=== PATIENT | male | born 1960 | race Caucasian/White ===

== ENCOUNTER → 2021-11-04 13:45 | Outpatient (CLI) | payer BC, SELFPAY ==
--- NOTE | ~2021-11-04 | XR_ITS ---
EXAMINATION: XR chest 2V EXAM DATE: 11/04/2021 14:18 INDICATION: Cough, congestion and fever. TECHNIQUE: Frontal and lateral projections of the chest obtained and reviewed. Comparison is made to prior examination from 05/29/2017. FINDINGS: The lungs are clear. There are no pleural effusions. The cardiomediastinal silhouette is within normal limits. There is no pneumothorax suspected. The bones and soft tissues are unremarkab le. IMPRESSION: No acute cardiopulmonary findings. Reviewed, dictated and finalized at location B. PER MACHINE
== END ==
PROVIDERS: Visit Provider Nurse Practitioner Family
DX: R05.9 Cough, unspecified (principal); R50.9 Fever, unspecified; R09.89 Other specified symptoms and signs involving the circulatory and respiratory systems
CPT/HCPCS: 71046

== ENCOUNTER 2022-08-17 12:23 | Outpatient (CLI) | payer BC, SELFPAY ==
--- NOTE | 2022-08-17 12:44 | ECG_ITS ---
Measurements Intervals [place] Rate: 59 P: 60 MT: 168 QRS: -41 QRSD: 114 T: 62 QT: 409 QTc: 407 Interpretive Statements SINUS BRADYCARDIA LEFT AXIS DEVIATION INCOMPLETE RIGHT BUNDLE BRANCH BLOCK CANNOT RULE OUT SEPTAL INFARCT, AGE INDETERMINATE ABNORMAL ECG NO PREVIOUS ECG AVAILABLE FOR COMPARISON Electronically Signed On 08-17-2022 14:10:26 EARTH SCIENCE TECHNICAL OFFICER by Matthias Patterson D.O.
[2022-08-17 12:45] LABS: Hematocrit 43.9 % (42.0-52.0); Hemoglobin 14.6 g/dL (14.0-18.0)
[2022-08-17 12:57] LABS: Hemoglobin A1C 5.4 % (<5.7)
[2022-08-17 13:01] LABS: Albumin Level 4.5 g/dL (3.5-5.1); Estimated Glomerular Filt Rate > 60; Glucose 90 mg/dL (65-110)
[2022-08-17 13:18] LABS: Urine Cotinine NEGATIVE
== END 2022-08-17 12:24 | disposition home or self-care (01) ==
LOC: ANHCARD 12:28
PROVIDERS: PCP Student in an Organized Health Care Education/Training Program; Visit Provider Orthopaedic Surgery
DX: M16.11 Unilateral primary osteoarthritis, right hip (principal); E78.5 Hyperlipidemia, unspecified; Z92.89 Personal history of other medical treatment; I45.10 Unspecified right bundle-branch block
CPT/HCPCS: 80307; 82040; 82565; 82947; 83036; 85014; 85018; 93005

== ENCOUNTER 2022-09-15 07:48 | Outpatient (CLI) | payer BC, SELFPAY ==
[2022-09-15 09:07] LABS: Basophils Absolute Auto 0.1 K/mm3 (0.0-0.1); Basophils Percent Auto 0.8 % (0.2-1.2); Eosinophils Absolute Auto 0.5 K/mm3 (0-0.3); Eosinophils Percent Auto 5.7 % (0-4.4); Hematocrit 44.6 % (42.0-52.0); Hemoglobin 14.5 g/dL (14.0-18.0); Immature Granulocyte Absolute 0.02 K/mm3 (0.00-0.031); Immature Granulocyte Percent A 0.2 % (0-0.5); Immature Platelet Fraction Pct 5.8 % (0.9-11.2); Lymphocytes Absolute Auto 1.55 K/mm3 (0.9-3.2); Lymphocytes Percent Auto 17.1 % (18.3-44.2); Mean Corpuscular HGB Conc 32.5 g/dl (32-36); Mean Corpuscular Hemoglobin 30.3 pg (26-34); Mean Corpuscular Volume 93.1 fl (80-100); Mean Platelet Volume 10.2 fl (7.4-10.4); Monocytes Percent Auto 10.8 % (2.6-8.5); Neutrophils Absolute Auto 5.9 K/mm3 (1.3-6.7); Neutrophils Percent Auto 65.4 % (45.5-73.1); Platelet Count Result 137 k/mm3 (150-375); Red Blood Count 4.79 M/mm3 (4.6-6.20); Red Cell Distribution Width 12.5 % (11.5-14.5); White Blood Count 9.1 K/mm3 (4.5-10.0)
== END 2022-09-15 07:49 | disposition home or self-care (01) ==
PROVIDERS: PCP Student in an Organized Health Care Education/Training Program; Visit Provider Orthopaedic Surgery
DX: M16.11 Unilateral primary osteoarthritis, right hip (principal); Z01.818 Encounter for other preprocedural examination
CPT/HCPCS: 36415; 85025; 85055; 87081

== ENCOUNTER 2022-10-11 01:32 | Day surgery (SDC) | payer BC, SELFPAY ==
--- NOTE | 2022-09-15 07:52 | PC.NURSE ---
PRE-OP INSTRUCTIONS, PLEASE READ CAREFULLY Report to the Outpatient Waiting Room, entrance under the green pavilion located off [facility], at time _1000_ on date _10/11/22_. Planned Procedure Time: _1200_. PACK A SMALL OVERNIGHT BAG AND LEAVE IN THE CAR Time changes happen often and if your time is changed the preop area will call you the afternoon before. - You and your visitor will be asked to self-screen and do not enter if you have any COVID symptoms. - Only one visitor is requested with a max of two and NO children visitors are allowed at this time. - The patient visitor may be requested to leave or wait in car when not with patient due to distancing restrictions. - A mask is required within the hospital. -VISITING HOURS 8AM-8PM Patients may have clear liquids (water, carbonated beverages, clear teas, apple juice) until 3 hours prior to surgery (0900 AM) with a maximum of 20 ounces. - No food from midnight until time of surgery Take the following medications with a SIP of water the morning of surgery: _LEVOTHYROXINE_ Medications to discontinue per DR. QUINTERO - _ALEVE 7 DAYS PRIOR TO SURGERY, Date to take last dose 10/03/22_ Medications to discontinue per ANESTHESIA - _ALL VITAMINS/SUPPLEMENTS DAYS PRIOR TO SURGERY, Date to take last dose 10/07/22_ Please no deodorant, or body powder the day of surgery. No jewelry (including any body piercings) or valuables the day of surgery, leave them at home. Please take a shower or bath the night before, or the morning of, surgery with an antibacterial soap. Wear comfortable, loose fitting clothing. - Jewelry must be removed prior to entering the operating room. Rings and piercings that are not removed may be cut off. - The hospital will not accept responsibility for valuables. - Please leave all valuables, including medications, at home the day of surgery. If you are going home after surgery, a licensed trackless trolley driver must drive you home. - NO public transportation without another adult if you receive anesthesia. - We recommend that an adult stay with you for 24 hours following discharge. - We also recommend that you do not drive, make important decision, drink alcoholic beverages, or take any drugs that were not prescribed by your health care provider for at least 24 hours after your discharge time. Follow any additional instructions given to you from your surgeon. If you or anyone in your household have experienced Covid symptoms in the past week, please notify your surgeon or the nurse liaison at the phone number below for possible testing. Instructions given to _PATIENT_and asked if any additional questions and then verbalized understanding. Patient advised to call surgeon office or pre surgery nurse liaison [phone] if any additional questions.
[2022-09-15 08:55] VITALS: BP 134/80; PULSE 62; RESP 20; TEMP 36.7; O2SAT 100; BMI 20.7
[2022-10-11] VITALS (12 sets, daily range): BP systolic 106–152; BP diastolic 57–83; PULSE 53–67; RESP 12–16; TEMP 36.6–36.9; O2SAT 99–100
--- NOTE | ~2022-10-11 | XR_ITS ---
EXAM: XR hip RT min 2V DATE: 10/11/2022 14:07 HISTORY: RT TOTAL HIP . COMPARISON: 08/11/2022. FINDINGS: Interval right hip total arthroplasty, hardware in good position. No unexpected radiopaque foreign body. Subcutaneous and capsular fluid and emphysema. Degenerative change in the lower lumbar spine, otherwise the regional bones are within normal limits for age. IMPRESSION: Expected postsurgical changes, with no radiographic evidence of procedure or hardware rel ated complication. Reviewed, dictated and finalized at location K. SAFETY MANAGER IMPRESSION: Expected postsurgical changes, with no radiographic evidence of pro cedure or hardware related complication.
--- NOTE | 2022-10-11 07:15 | WPDHPUPDATE1 ---
History and Physical Update Update Date/Time: 10/11/22 07:15 History and Physical has been reviewed, including an updated exam of the patient. There are NO changes in the patient's condition. Risks, benefits, and alternatives have been discussed and questions answered. Patient agrees to proceed with procedure.
--- NOTE | 2022-10-11 08:38 | WPDANESEPPF ---
Anes - Initial Pre Proc Eval Procedure: Operation Date: 10/11/22 11:00 Proposed Procedures p Right Total Hip Arthroplasty - Mitchel Krause MD Date/Time: 10/11/22 08:38 Surgeon: Mitchel Krause MD Pre Op Diagnosis: Prim O A Rt Hip Patient Data Age: 61 Gender: M Height: 1.93 m Weight: 77.3 kg Last Vital Signs Temp 36.7 C 09/15/22 08:55 Pulse 62 09/15/22 08:55 Resp 20 09/15/22 08:55 BP 134/80 09/15/22 08:55 Pulse Ox 100 09/15/22 08:55 O2 Del Method Room Air 09/15/22 08:55 Allergies Allergy/AdvReac Type Severity Reaction Status Date / Time No Known Allergies Allergy Unverified 09/30/22 13:02 Home Medications Medication Instructions Recorded Confirmed Type atorvastatin 10 mg tablet 10 mg PO DAILY 07/26/22 09/30/22 History levothyroxine 88 mcg capsule 88 mcg PO DAILY 07/26/22 09/30/22 History ascorbic acid (vitamin C) 1,000 mg 1 g PO DAILY 09/15/22 09/30/22 History tablet (Vitamin C) calcium carbonate 600 mg-vitamin 1 tablet PO DAILY 09/15/22 09/30/22 History D3 5 mcg (200 unit) tablet cholecalciferol (vitamin D3) 10 10 mcg PO DAILY 09/15/22 09/30/22 History mcg (400 unit) tablet magnesium 100 mg tablet 100 mg PO QAM 09/15/22 09/30/22 History naproxen sodium 220 mg tablet 220 mg PO DAILY PRN Pain 09/15/22 09/30/22 History (Aleve) vitamin E 400 unit tablet 400 unit PO DAILY 09/15/22 09/30/22 History Patient hx anesthesia problems: none Family hx anesthesia problems: none Results Review: All pre-operative results and documents have been reviewed as part of the pre-operative evaluation. [facility] Past Medical History Medical History Chronic low back pain History of stress test Hyperlipemia Hypothyroid Surgical History Surgical History History of laminectomy (~2006) PARTIAL L5-S1 Family History Family History Grandparent Heart attack Social History Social History Smoking status: Never smoker Second hand tobacco smoke exposure: No Additional smoking assessment comments: PT DENIES ALL FORMS OF TOBACCO USE Alcohol intake: current Drinks per week: 4 Substance use: never Substance use type: does not use Lack of Transportation: No Lack of Food: Never True Current Housing: I Have Housing Concerned About Future Housing: No Difficulty Paying Gas/Electric Bills: No Difficulty Paying for Meds: No Currently Unemployed: No Education: Master's Degree or Higher Difficulty w/ Childcare or Family Care: No Living arrangements: with family Spiritual care concerns: No Anes - Eval Final PreProcedure Day of Procedure 10/11/22 08:38 Patient weight: normal Heart: regular rate and rhythm Lungs: clear to auscultation Airway: Mallampati scale class II Neurological: alert and oriented Last oral intake: >/= 8 hours ASA classification: II Emergent: no Anesthetic plan: proceed Anesthesia type and monitoring: general ETT and standard monitoring Results Review: All pre-operative results and documents have been reviewed as part of the pre-operative evaluation. Informed Consent: The patient's anesthetic plan and its attendant risks and benefits were discussed with the patient/family/POA. Questions were solicited and answers provided to the satisfaction of the patient/family/POA.
[2022-10-11] MEDS: ACETAMINOPHEN 500 MG TABLET 1000 MG PO (09:55)
[2022-10-11] MEDS: LACTATED RINGERS 1,000 ML 30 ML IV CONT ×2 (10:01→13:10)
[2022-10-11] MEDS: TRANEXAMIC ACID 1,000MG/ISO100 1,000 MG/100 ML BAG 200 MG IVPB (10:02)
[2022-10-11] MEDS: ceFAZolin 2 GM/D5W 50 ML 2 GM/50 ML BAG IVPB (10:55)
[2022-10-11] MEDS: fentaNYL CITRATE INJ (*CRX) 100 MCG/2 ML VIAL 25 MCG IV PUSH ×8 (13:29→14:30)
--- NOTE | 2022-10-11 13:49 | W.PM.PROC2 ---
Procedure Note - Detailed Date of Procedure 10/11/22 Pre-op Diagnosis Prim O A Rt Hip Post-op Diagnosis Same Procedure Performed Right Total Hip Arthroplasty Surgeon Mitchel Krause MD Pullman Car Repairer Kristine Chauhan PA-C Anesthesia General Findings Severe disease with significant synovitis. Very shallow acetabulum with hypertrophic labrum. Excellent bone quality. Tall and very lean. Habematolel femoral version approximately 0-5 degrees. Femoral stem placed at 5?. Acetabulum component placed at 20? with 10 degree elevated liner utilized just below the equator. Good bony fit and hemispheric acetabular socket created at the 52 mm size. Description of Procedure The patient was given preoperative antibiotics. A general anesthetic was administered. The patient was carefully placed in the lateral decubitus position on the PEG board. The shoulders and hips were carefully positioned for component and leg length positioning reference. The hip was prepped and draped in the usual sterile fashion. A longitudinal incision was created over the posterior aspect of the greater trochanter. Careful dissection was brought down through the deep fascia with electrocautery. A minimally invasive optimized posterior approach to the hip was performed. The short external rotators and capsule were taken down in an L-shaped capsulotomy. The tissue was tagged for later repair using number 2 high strength suture. The femoral neck was measured and taken in situ. The femoral head was removed. The acetabulum was carefully exposed. The inferior capsule was released. The labrum was resected. The acetabulum was sequentially reamed to the intended cup size. The cup was impacted into position with excellent press-fit. Typical anatomic landmarks, including the bony contact points as well as the inferior transverse acetabular ligament were used to confirm cup positioning with preoperative templating. Attention was turned to the femur, which was carefully exposed. The hip was reamed and then broached sequentially. Excellent press-fit was obtained with the broach. The hip was trialed. Measurements were utilized, including the lesser trochanter as well as the center of the femoral head and the tip of the trochanter, and excellent assessment of the offset and leg lengths were confirmed. The real component was impacted into position. Trialing confirmed appropriate leg length and offset with soft tissue balancing as well apparent feel of the leg, both at the knee and the heel. Soft tissues were assessed using the the iliotibial band. Reduction of the posterior capsule and external rotators were also used as a secondary assessment. The hip was copiously irrigated with pulsatile lavage antibiotic solution periodically throughout the procedure. The real components were then assembled and reduced. The hip was stable throughout typical maneuvers, including extension, external rotation to 70 degrees, the position of sleep as well as flexion to 90 degrees with internal rotation past 45 degrees. The shake test confirmed stability without impingement. Osteophytes were removed as necessary. The short external rotators and capsule were repaired back to the posterior trochanter through drill holes. The deep fascia was repaired with running number 2 Quill suture, followed by 0 Stratafix suture and 2-0 Stratafix suture in the dermis. Steri-Strips were placed on the skin, followed by a sterile silver occlusive dressing. There were no complications. Meticulous hemostasis was maintained with the AquaMantys device. The patient was brought to the recovery room in stable condition. There were no complications. Physician cancer genetics assistant, Kristine Chauhan PA-C, required for surgery; including patient positioning, draping, tissue retraction, maintaining instrument position, hip dislocation/ relocation, wound closure, and dressing placement. Implants The Accolade II hip stem, 127 degree size 5 , was utili
[2022-10-11] MEDS: ONDANSETRON INJ 4 MG/2 ML VIAL IV PUSH (15:45)
--- NOTE | 2022-10-11 17:26 | SUR.PHASEII ---
1710 pt seen by pt/ot and is ok for discharge. pt meets anesthesia discharge protocol
== END 2022-10-11 17:20 | disposition home or self-care (01) ==
PROVIDERS: PCP Student in an Organized Health Care Education/Training Program; Visit Provider Orthopaedic Surgery
PROC: (CPT 27130; principal; 2022-10-11 11:00)
DX: M16.11 Unilateral primary osteoarthritis, right hip (principal); E78.5 Hyperlipidemia, unspecified; E03.9 Hypothyroidism, unspecified
CPT/HCPCS: 27130; 73502; 97110; 97116; 97161; 97165; 97530; 97535; A9270; C1776; J0171; J0690; J1100; J1170; J1885; J2250; J2270; J2405; J2704; J2710; J2795; J3010; J7120

== ENCOUNTER 2022-10-11 20:36 | Emergency (ER) | payer BC, SELFPAY ==
[2022-10-11 20:46] VITALS: BP 118/63; PULSE 74; RESP 16; TEMP 36.5; O2SAT 100
--- NOTE | 2022-10-11 21:15 | ED.GENADULT ---
HPI - General Adult General Chief complaint: Unspecified Stated complaint: hip replacement today, blood soaked bandage. Time Seen by Provider: 10/11/22 21:07 History of Present Illness HPI narrative: Patient is a 61-year-old male who presents the ER with postoperative complication. He underwent right total hip replacement today. It was an elective procedure with Dr. Krause. He began bleeding through his bandage and was told to come here to have it changed. He has no new fevers or chills or sweats. No new pain other than what he expects to have after surgery. He has been able to ambulate with his walker. Related Data Home Medications Medication Instructions Recorded Confirmed atorvastatin 10 mg tablet 10 mg PO DAILY 07/26/22 10/11/22 levothyroxine 88 mcg capsule 88 mcg PO DAILY 07/26/22 10/11/22 ascorbic acid (vitamin C) 1,000 mg 1 g PO DAILY 09/15/22 10/11/22 tablet (Vitamin C) calcium carbonate 600 mg-vitamin 1 tablet PO DAILY 09/15/22 10/11/22 D3 5 mcg (200 unit) tablet cholecalciferol (vitamin D3) 10 10 mcg PO DAILY 09/15/22 10/11/22 mcg (400 unit) tablet magnesium 100 mg tablet 100 mg PO QAM 09/15/22 10/11/22 naproxen sodium 220 mg tablet 220 mg PO DAILY PRN Pain 09/15/22 10/11/22 (Aleve) vitamin E 400 unit tablet 400 unit PO DAILY 09/15/22 10/11/22 Allergies Allergy/AdvReac Type Severity Reaction Status Date / Time No Known Allergies Allergy Verified 10/11/22 20:36 Review of Systems Constitutional: Constitutional: Denies chills, Denies fatigue and Denies fever(s) Musculoskeletal: Musculoskeletal: Denies muscle cramps Comments: Postsurgical pain right hip Integumentary/Breasts: Skin/Breast: Denies erythema and Denies rash Comments: Bleeding from postop site right hip. Neurologic: Denies focal weakness and Denies numbness PMFSH Past Medical History Medical History (Updated 10/11/22 @ 21:45 by Jacob Fontaine MD) Chronic low back pain History of stress test Hyperlipemia Hypothyroid Surgical History Surgical History (Updated 10/11/22 @ 21:45 by Jacob Fontaine MD) History of laminectomy (~2006) PARTIAL L5-S1 History of total hip arthroplasty Family History Family History Grandparent Heart attack Social History Social History Smoking status: Never smoker Second hand tobacco smoke exposure: No Additional smoking assessment comments: PT DENIES ALL FORMS OF TOBACCO USE Alcohol intake: current Drinks per week: 4 Substance use: never Substance use type: does not use Lack of Transportation: No Lack of Food: Never True Current Housing: I Have Housing Concerned About Future Housing: No Difficulty Paying Gas/Electric Bills: No Difficulty Paying for Meds: No Currently Unemployed: No Education: Master's Degree or Higher Difficulty w/ Childcare or Family Care: No Spiritual care concerns: No Exam Narrative: GENERAL: Well-appearing, well-nourished, and in no acute distress. HEAD: Normocephalic, atraumatic. HEART: Regular rate and rhythm. Normal peripheral pulses. EXTREMITIES: Right hip with saturated inferior half of the postoperative bandage. Bandage removed and Steri-Strips still intact over the surgical wound without wound dehiscence. No surrounding cellulitis. No drainage of blood/serous fluid/purulent material. Limited range of motion due to recent operation. Bilateral lower extremities with compressive socks below the knee. SKIN: Warm, dry, no rash. Wound as described above. NEURO: Alert and oriented x3. PSYCH: Normal mood and affect. Course Course Emergency Course: We have obtained a Mepilex 4 inch x 10 inch dressing that is the same as what he been placed in the OR. The old saturated bandage has been removed and a new wood has been placed. No active bleeding or evidence of dehiscence of the surgical site.
--- NOTE | 2022-10-11 22:58 | PC.NURSE ---
Mepilex border Post-OP AG 4x10in applied at this time, Dr. Zhen hicks and yovani to continue with d/c.
== END 2022-10-11 23:07 | disposition home or self-care (01) ==
LOC: ANHED 21:48
PROVIDERS: Emergency Provider Emergency Medicine; PCP Student in an Organized Health Care Education/Training Program
DX: L76.22 Postprocedural hemorrhage of skin and subcutaneous tissue following other procedure (principal); Z96.641 Presence of right artificial hip joint; E78.5 Hyperlipidemia, unspecified; E03.9 Hypothyroidism, unspecified; G89.29 Other chronic pain; M54.50 Low back pain, unspecified
CPT/HCPCS: 99282

== ENCOUNTER 2022-10-18 12:53 | Outpatient (CLI) | payer BC, SELFPAY ==
--- NOTE | ~2022-10-18 | US_ITS ---
EXAMINATION: US venous doppler LE DATE: 10/18/2022 13:56 INDICATION: Lower limb pain and swelling TECHNIQUE: Grayscale ultrasound images without and with compression and Doppler ultrasound images of the right lower extremity veins were obtained. COMPARISON: None. FINDINGS: The visualized portions of right common femoral vein, profunda (deep) femoral vein, femoral vein, pop liteal vein, peroneal trunk, posterior tibial veins, peroneal veins, gastrocnemius vein and greater s aphenous vein outflow are patent. IMPRESSION: 1. No deep venous thrombosis in the right lower limb. Reviewed, dictated and finalized at location B. THYLANILINE SULFATOR OPERATOR
== END 2022-10-18 12:54 | disposition home or self-care (01) ==
PROVIDERS: PCP Student in an Organized Health Care Education/Training Program; Visit Provider Orthopaedic Surgery
DX: M79.89 Other specified soft tissue disorders (principal)
CPT/HCPCS: 93971

== ENCOUNTER 2022-12-07 01:31 | Day surgery (SDC) | payer BC, SELFPAY ==
[2022-11-30 12:08] VITALS: BMI 20.9
[2022-12-07 08:23] VITALS: BP 126/70; PULSE 73; RESP 16; TEMP 36.4; O2SAT 99
[2022-12-07] MEDS: AMPICILLIN 2 GM/NS 100 ML 2 GM/100 ML BAG IVPB (08:27)
[2022-12-07] MEDS: LACTATED RINGERS 1,000 ML 150 ML IV CONT (08:35)
--- NOTE | 2022-12-07 08:59 | PM.HPGS ---
History of Present Illness History of Present Illness Consent: Risks, benefits, and alternatives have been discussed and questions answered. Patient agrees to proceed with procedure. Chief complaint: neoplasm screening Narrative: Fran Cao is a 62 year old male Presents for screening colonoscopy. Patient's current weight appetite and bowel movements are normal. Patient denies abdominal pain. He has had no bleeding. Family history is noncontributory. Previous colonoscopy more than 10 years ago he was told was unremarkable. Review of Systems Review of Systems: Review of systems noncontributory. [facility] Past Medical History Medical History Chronic low back pain History of stress test Hyperlipemia Hypothyroid Surgical History Surgical History History of laminectomy (~2006) PARTIAL L5-S1 History of total hip arthroplasty (~10/11/22) Family History Family History Grandparent Heart attack Social History Social History Smoking status: Never smoker Second hand tobacco smoke exposure: No Additional smoking assessment comments: PT DENIES ALL FORMS OF TOBACCO USE Alcohol intake: current Drinks per week: 5 Substance use: never Substance use type: does not use Lack of Transportation: No Lack of Food: Never True Current Housing: I Have Housing Concerned About Future Housing: No Difficulty Paying Gas/Electric Bills: No Difficulty Paying for Meds: No Currently Unemployed: No Education: Master's Degree or Higher Difficulty w/ Childcare or Family Care: No Living arrangements: with family Spiritual care concerns: No Meds Home Medications and Allergies Home Medications Medication Instructions Recorded Confirmed Type atorvastatin 10 mg tablet 10 mg PO DAILY 07/26/22 12/07/22 History levothyroxine 88 mcg capsule 88 mcg PO DAILY 07/26/22 12/07/22 History ascorbic acid (vitamin C) 1,000 mg 1 g PO DAILY 09/15/22 12/07/22 History tablet (Vitamin C) calcium carbonate 600 mg-vitamin 1 tablet PO DAILY 09/15/22 12/07/22 History D3 5 mcg (200 unit) tablet cholecalciferol (vitamin D3) 10 10 mcg PO DAILY 09/15/22 12/07/22 History mcg (400 unit) tablet magnesium 100 mg tablet 100 mg PO QAM 09/15/22 12/07/22 History naproxen sodium 220 mg tablet 220 mg PO DAILY PRN Pain 09/15/22 12/07/22 History (Aleve) vitamin E 400 unit tablet 400 unit PO DAILY 09/15/22 12/07/22 History Allergies Allergy/AdvReac Type Severity Reaction Status Date / Time No Known Allergies Allergy Verified 12/07/22 08:18 Vital Signs Vital Signs - 24 hr 12/07/22 08:23 Temperature 97.5 F L Pulse Rate 73 Respiratory Rate 16 Blood Pressure 126/70 Pulse Oximetry 99 Oxygen Delivery Room Air Exam Narrative: Physical exam reveals patient be alert. Vital signs stable. HEENT exam is unremarkable. Patient is anicteric. Lungs are clear to auscultation and percussion. Heart is without murmur or extra sounds. Abdomen bowel sounds are present soft nontender with no organomegaly. Digital external rectal exam is normal. Assessment and Plan Assessment and plan (1) Encounter for screening colonoscopy: Code(s): Z12.11 - Encounter for screening for malignant neoplasm of colon Status: Acute Assessment and Plan: Patient presents for screening colonoscopy. He appears to be at average risk for colon polyps. Plan for antibiotics preprocedure because of his recent hip surgery.
--- NOTE | 2022-12-07 09:03 | WPDANESEPPF ---
Anes - Initial Pre Proc Eval Procedure: Operation Date: 12/07/22 09:30 Proposed Procedures p Screening Colonoscopy - Wili Barajas MD Date/Time: 12/07/22 09:03 Surgeon: Wili Barajas MD Pre Op Diagnosis: neoplasm screening Patient Data Age: 62 Gender: M Height: 1.93 m Weight: 71.8 kg Last Vital Signs Temp 97.5 F L 12/07/22 08:23 Pulse 73 12/07/22 08:23 Resp 16 12/07/22 08:23 BP 126/70 12/07/22 08:23 Pulse Ox 99 12/07/22 08:23 O2 Del Method Room Air 12/07/22 08:23 Allergies Allergy/AdvReac Type Severity Reaction Status Date / Time No Known Allergies Allergy Verified 12/07/22 08:18 Home Medications Medication Instructions Recorded Confirmed Type atorvastatin 10 mg tablet 10 mg PO DAILY 07/26/22 12/07/22 History levothyroxine 88 mcg capsule 88 mcg PO DAILY 07/26/22 12/07/22 History ascorbic acid (vitamin C) 1,000 mg 1 g PO DAILY 09/15/22 12/07/22 History tablet (Vitamin C) calcium carbonate 600 mg-vitamin 1 tablet PO DAILY 09/15/22 12/07/22 History D3 5 mcg (200 unit) tablet cholecalciferol (vitamin D3) 10 10 mcg PO DAILY 09/15/22 12/07/22 History mcg (400 unit) tablet magnesium 100 mg tablet 100 mg PO QAM 09/15/22 12/07/22 History naproxen sodium 220 mg tablet 220 mg PO DAILY PRN Pain 09/15/22 12/07/22 History (Aleve) vitamin E 400 unit tablet 400 unit PO DAILY 09/15/22 12/07/22 History Patient hx anesthesia problems: none Family hx anesthesia problems: none Results Review: All pre-operative results and documents have been reviewed as part of the pre-operative evaluation. [facility] Past Medical History Medical History Chronic low back pain History of stress test Hyperlipemia Hypothyroid Surgical History Surgical History History of laminectomy (~2006) PARTIAL L5-S1 History of total hip arthroplasty (~10/11/22) Family History Family History Grandparent Heart attack Social History Social History Smoking status: Never smoker Second hand tobacco smoke exposure: No Additional smoking assessment comments: PT DENIES ALL FORMS OF TOBACCO USE Alcohol intake: current Drinks per week: 5 Substance use: never Substance use type: does not use Lack of Transportation: No Lack of Food: Never True Current Housing: I Have Housing Concerned About Future Housing: No Difficulty Paying Gas/Electric Bills: No Difficulty Paying for Meds: No Currently Unemployed: No Education: Master's Degree or Higher Difficulty w/ Childcare or Family Care: No Living arrangements: with family Spiritual care concerns: No Anes - Eval Final PreProcedure Day of Procedure 12/07/22 09:03 Patient weight: normal Heart: regular rate and rhythm Lungs: clear to auscultation Airway: Mallampati scale class II Neurological: alert and oriented Last oral intake: >/= 8 hours ASA classification: II Emergent: no Anesthetic plan: proceed Anesthesia type and monitoring: general GIVS and standard monitoring Results Review: All pre-operative results and documents have been reviewed as part of the pre-operative evaluation. Informed Consent: The patient's anesthetic plan and its attendant risks and benefits were discussed with the patient/family/POA. Questions were solicited and answers provided to the satisfaction of the patient/family/POA.
[2022-12-07 10:06] VITALS: BP 123/84; PULSE 73; RESP 28; O2SAT 96
[2022-12-07 10:16] VITALS: BP 112/79; PULSE 67; RESP 21; O2SAT 96
[2022-12-07 10:26] VITALS: BP 130/81; PULSE 59; RESP 23; O2SAT 100
== END 2022-12-07 10:41 | disposition home or self-care (01) ==
PROVIDERS: PCP Student in an Organized Health Care Education/Training Program; Visit Provider Internal Medicine Gastroenterology
PROC: 0DJD8ZZ Inspection of Lower Intestinal Tract, Via Natural or Artificial Opening Endoscopic (ICD-10-PCS; CPT 45378; principal; 2022-12-07 09:30)
DX: Z12.11 Encounter for screening for malignant neoplasm of colon (principal); K64.8 Other hemorrhoids; E78.5 Hyperlipidemia, unspecified; E03.9 Hypothyroidism, unspecified; G89.29 Other chronic pain; M54.50 Low back pain, unspecified; F10.90 Alcohol use, unspecified, uncomplicated; Z79.1 Long term (current) use of non-steroidal anti-inflammatories (NSAID); Z79.899 Other long term (current) drug therapy
CPT/HCPCS: 45378; J0290; J2704; J7120

== ENCOUNTER 2023-10-17 15:40 | Outpatient (CLI) | payer BC, SELFPAY ==
--- NOTE | ~2023-10-17 | XR_ITS ---
EXAMINATION: XR hip RT min 2V DATE: 10/17/2023 15:56 INDICATION: Right hip pain. TECHNIQUE: 2 views of right hip were obtained. COMPARISON: Right hip radiographs 02/02/2023 FINDINGS: There is a total right hip arthroplasty in near-anatomic alignment. No fracture. No peripro sthetic lucency to suggest loosening or infection. IMPRESSION: 1. Total right hip arthroplasty in near-anatomic alignment. Reviewed, dictated and finalized at location E. EE BLENDER
== END 2023-10-17 15:41 | disposition home or self-care (01) ==
LOC: ANHIMG 15:44
PROVIDERS: PCP Student in an Organized Health Care Education/Training Program; Visit Provider Orthopaedic Surgery
DX: Z96.641 Presence of right artificial hip joint (principal)
CPT/HCPCS: 73502

== ENCOUNTER 2024-02-13 07:36 | Outpatient (CLI) | payer MEDICARE, SELFPAY ==
--- NOTE | ~2024-02-13 | MR_ITS ---
EXAMINATION: MR hip RT wo con DATE: 02/13/2024 10:29 INDICATION: Right hip pain with right total hip arthroplasty TECHNIQUE: Magnetic resonance imaging (MRI) of the right hip was performed without intravenous contr ast. Sequences included full-field axial PD-weighted FS FSE and T1-weighted FSE, coronal of the pelvi s with PD-weighted FS FSE, T2-weighted FSE and T1-weighted FSE, small field of view of the right hip with axial PD-weighted FS FSE, sagittal PD-weighted FS FSE, coronal PD-weighted FS FSE and coronal T2 weighted FSE. Additional radial T1-weighted FGR oriented orthogonal to the acetabular rim were obt ained for evaluation of the labrum. COMPARISON: Right hip radiographs dated 10/17/2023 FINDINGS: Bones/labrum/cartilage: Prominent metallic magnetic field artifact which disrupts the fat saturation in the immediately surro unding bone and soft tissues. Alignment appears essentially anatomic. No fracture or pathologic marro w replacing process. There is mild osteoarthritis of the left hip with high-grade chondromalacia at t he cephalad left acetabulum including full/near full-thickness chondral fissuring and underlying suba rticular cystlike change. There are small marginal osteophytes about the left femoral head. There is also a low signal intensity bone island at the left femoral head neck junction. There is a small righ t hip joint effusion along the head neck junction of the arthroplasty. Fluid: Physiologic amount fluid at the left hip. Small right hip joint effusion about the head neck junction of the right hip arthroplasty. Soft tissues: Normal and symmetric muscle bulk and signal in the pelvis and visualized proximal thighs. The iliopso as, gluteal and proximal hamstring tendons are normal. Prostatomegaly measuring 4.5 x 3.8 cm. Limited evaluation of visceral organs of the pelvis is otherwise unremarkable. No pathologically enlarged p elvic/inguinal lymphadenopathy. IMPRESSION: 1. Small right hip joint effusion about the head neck junction of the right total hip arthroplasty. Reviewed, dictated and finalized at location A. IMPRESSION: 1. Small right hip joint effusion about the head neck junction of the right tot al hip arthroplasty.
== END 2024-02-13 07:37 | disposition home or self-care (01) ==
LOC: ANHIMG 07:38
PROVIDERS: PCP Student in an Organized Health Care Education/Training Program; Visit Provider Orthopaedic Surgery
DX: M70.71 Other bursitis of hip, right hip (principal); M25.451 Effusion, right hip; Z96.641 Presence of right artificial hip joint
CPT/HCPCS: 73721

== ENCOUNTER 2024-07-19 12:44 | Outpatient (CLI) | payer MEDICARE, SELFPAY ==
--- NOTE | ~2024-07-19 | XR_ITS ---
XR shoulder RT min 2V 07/19/2024 13:05 Indication: Right shoulder pain Procedure: 4 views right shoulder Comparison: No prior studies for comparison. Findings: No fracture, subluxation or dislocation. No significant soft tissue abnormality. No foreign body. Impression: 1: No acute bone or joint abnormality. Reviewed, dictated and finalized at location B. Impression: 1: No acute bone or joint abnormality.
== END 2024-07-19 12:45 | disposition home or self-care (01) ==
LOC: ANHIMG 12:48
PROVIDERS: PCP Student in an Organized Health Care Education/Training Program; Visit Provider Orthopaedic Surgery
DX: M25.811 Other specified joint disorders, right shoulder (principal)
CPT/HCPCS: 73030

== ENCOUNTER 2024-09-03 11:02 | Outpatient (CLI) | payer MEDICARE, SELFPAY ==
--- NOTE | 2024-09-03 11:00 | ECG_ITS ---
Test Date: 2024-09-03 11:27:04 Measurements Intervals [place] Rate: 61 P: 59 TX: 161 QRS: -51 QRSD: 115 T: 49 QT: 402 QTc: 407 Interpretive Statements SINUS RHYTHM POSSIBLE RIGHT VENTRICULAR CONDUCTION DELAY [RSR (QR) IN V1/V2] LEFT ANTERIOR FASCICULAR BLOCK [QRS AXIS <= -45, QR IN I, RS IN II] ST ELEVATION, PROBABLY EARLY REPOLARIZATION [ST ELEVATION WITH NORMALLY INFLECTED T WAVE] WARNING: DATA QUALITY MAY AFFECT INTERPRETATION No previous ECG available for comparison Electronically Signed On 09-03-2024 12:58:09 [employer] by Gilberto East M.D.
== END 2024-09-03 11:03 | disposition home or self-care (01) ==
LOC: ANHSURGERY 11:08
PROVIDERS: PCP Student in an Organized Health Care Education/Training Program; Visit Provider Plastic Surgery
DX: E78.5 Hyperlipidemia, unspecified (principal)
CPT/HCPCS: 93005

== ENCOUNTER 2024-09-12 01:39 | Day surgery (SDC) | payer MEDICARE, SELFPAY ==
--- NOTE | 2024-08-30 10:27 | PC.NURSE ---
Report to the Outpatient Waiting Room, entrance under the green pavilion located off [facility], at time _6:45 AM on date _09/12/24 . Planned Procedure Time: _8:45 AM .? Time changes happen often and if your time is changed the preop area will call you the afternoon before. - You and your visitor will be asked to self-screen and do not enter if you have any COVID symptoms. Please call surgeon if you need to reschedule. - A mask is optional within the hospital at this time. NOTHING TO EAT OR DRINK 8 HOURS PRIOR TO SURGERY PER DR WATSON ( 11:30 PM) Take only the following medications with a SIP of water on the morning of surgery: _LEVOTHYROXINE DO NOT STOP ANY OF YOUR OTHER PRESCRIPTION MEDICATIONS PRIOR TO SURGERY EXCEPT THE FOLLOWING Medications to discontinue per physician __HOLD ALL VITAMINS AND SUPPLEMENTS 3 DAYS PRE OP Date to take last dose___09/08/24 Please no make-up, nail chinese, hairspray, perfume, deodorant, or body powder the day of surgery.? No jewelry (including any body piercings) or valuables the day of surgery, leave them at home.? Please take a shower or bath the night before, or the morning of, surgery with an antibacterial soap.? Wear comfortable, loose fitting clothing.? Children are encouraged to wear pajamas. - Jewelry must be removed prior to entering the operating room.? Rings and piercings that are not removed may be cut off. - The hospital will not accept responsibility for valuables.? - Please leave all valuables, including medications, at home the day of surgery. If you are going home after surgery, a licensed otr refrigerated cdl truck driver must drive you home.? - NO public transportation without another adult if you receive anesthesia. - We recommend that an adult stay with you for 24 hours following discharge. - We also recommend that you do not drive, make important decision, drink alcoholic beverages, or take any drugs that were not prescribed by your health care provider for at least 24 hours after your discharge time. For Pediatric surgeries, we recommend two adults accompany the child home. Follow any additional instructions given to you from your surgeon. Telephone instructions given to ___PATIENT and asked if any additional questions and then verbalized understanding. Patient advised to call surgeon office or pre surgery nurse liaison [phone] if any additional questions.
[2024-08-30 10:38] VITALS: BMI 20.6
--- NOTE | 2024-09-12 06:44 | P.OP_ITS ---
Procedure Note - Detailed Date of Procedure 09/12/24 Pre-op Diagnosis Dupuytren's contracture right ring finger Post-op Diagnosis Same Procedure Performed right ring finger fasciectomy Surgeon Anabell Reyes MD [employer] Team Member js lopez pa-c Anesthesia MAC Description of Procedure INFORMED CONSENT: The patient was seen and examined and marked in the pre-op area.? The patient signed the consent form. PROCEDURE IN DETAIL:The patient taken back to OR on the stretcher in supine position. Time out performed with anesthesia, surgeon and staff agreeing on patient's name site and surgery to be performed SCDs were placed on the lower extremities and inflated. A tourniquet was placed on {right} upper extremity and antibiotics given IV After anesthesia administered sedation I injected {5}cc 1%lido and 0.5% marcaine plain at the operative site The?{right upper extremity}?was prepped and draped in sterile fashion the??{right upper extremity} was? exsanguinated with Esmarch bandage and tourniquet inflated to 250mmHg I proceeded with using 15 blade scalpel to make incision through skin and dermis near the proximal origig of the cord extending across the pipj flexion crease and going aobliquely across palmar and finger flexion creases. Subdermal skin flaps elevated. I used littler scissors to circumferentially dissect around the cord near its origin in the proximal palm and then transected it with 15 blade scalpel. I proceeded with anterograde dissection of the cord distally until achieving full release of mpjoint and pipj with full finger extension. The neurovascular bundles were identified and protected throughout the procedure. I irrigated with normal saline and closed with 4-0 chromic. A dressing of xeroform, 4x4, bladimir, and an ulnar gutter splint was applied for patient safety, security, and comfort and secured with an stacie bandage after the tourniquet was let down noting the hand was warm and well perfused. The patient was then awaken from anesthesia and transferred to the recovery room in stable condition.? Complications - none EBL- 0cc Disposition - home in stable conditions js lopez pa-c was essential for positioning, retraction, closure and dressing placement [facility] Billing Surgery - Charge Forward: Surgery Billing ([id number] for js)
--- NOTE | 2024-09-12 06:44 | PM.HPGS ---
History of Present Illness History of Present Illness Chief complaint: Dupuytren's contracture Narrative: Patient seen and examined in pre-operative holding area. No interval change in medical history or symptoms. Patient recalls previous discussion of benefits and alternatives to procedure. Continues to desire to proceed with right ring finger fasciectomy. Reviewed procedure, post-op expectations and risks including but not limited to bleeding, infection, injury to tendon/nerve/vessel, decreased hand function, stiffness, RSD, no change or worsening of symptoms, incomplete release, recurrence. I discussed the possible use of assistants and their participation in the case. Patient stated understanding and signed the consent form wishing to proceed. Review of Systems Review of Systems: All systems reviewed & are unremarkable except as noted in HPI and below PMFSH Past Medical History Medical History History of stress test Chronic low back pain Hypothyroid Hyperlipemia Surgical History Surgical History History of total hip arthroplasty (~10/11/22) Rt History of laminectomy (~2006) PARTIAL L5-S1 Family History Family History Grandparent Heart attack Social History Social History Smoking status: Never smoker Second hand tobacco smoke exposure: No Additional smoking assessment comments: PT DENIES ALL FORMS OF TOBACCO USE Alcohol intake: current Drinks per week: 5 Substance use: never Substance use type: does not use Do You Feel Safe in your Home?: Yes Lack of Transportation: No Lack of Food: Never True Current Housing: I Have Housing Concerned About Future Housing: No Difficulty Paying Gas/Electric Bills: No Difficulty Paying for Meds: No Currently Unemployed: No Education: Master's Degree or Higher Difficulty w/ Childcare or Family Care: No Living arrangements: with family Spiritual care concerns: No Meds Home Medications and Allergies Home Medications ?Medication ?Instructions ?Recorded ?Confirmed ?Type atorvastatin 10 mg tablet 10 mg PO DAILY 07/26/22 09/12/24 History levothyroxine 88 mcg capsule 88 mcg PO DAILY 07/26/22 09/12/24 History ascorbic acid (vitamin C) 1,000 mg 1 g PO DAILY 09/15/22 09/12/24 History tablet (Vitamin C) calcium 600 mg (as 1 tablet PO DAILY 09/15/22 09/12/24 History carbonate)-vitamin D3 5 mcg (200 unit) tablet magnesium 100 mg tablet 100 mg PO QAM 09/15/22 09/12/24 History naproxen sodium 220 mg tablet 220 mg PO PRN PRN Pain 09/15/22 09/12/24 History (Aleve) eduqplse-uwk-uzmvn acid 200 1 tablet PO DAILY 08/30/24 09/12/24 History mcg-vit K1 60 mcg-lycopene 600 mcg tablet (Men's Multivitamin) Allergies Allergy/AdvReac Type Severity Reaction Status Date / Time No Known Allergies Allergy Verified 08/30/24 10:24 Exam Narrative: unchnaged Assessment and Plan Assessment and plan (1) Dupuytren's contracture of hand: Code(s): 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
[2024-09-12 07:45] VITALS: BP 117/61; PULSE 56; RESP 16; TEMP 36.4; O2SAT 100
--- NOTE | 2024-09-12 07:46 | P.PNAN_ITS ---
Anes - Initial Pre Proc Eval Procedure: Operation Date: 09/12/24 08:45 Proposed Procedures p Right Ring Finger Fasciectomy - Anabell Reyes MD Date/Time: 09/12/24 07:46 Surgeon: Anabell Reyes MD Pre Op Diagnosis: Dupuytren's contracture Patient Data Age: 63 Gender: M Height: 1.91 m Weight: 74.85 kg Allergies Allergy/AdvReac Type Severity Reaction Status Date / Time No Known Allergies Allergy Verified 08/30/24 10:24 Home Medications ?Medication ?Instructions ?Recorded ?Confirmed ?Type atorvastatin 10 mg tablet 10 mg PO DAILY 07/26/22 09/12/24 History levothyroxine 88 mcg capsule 88 mcg PO DAILY 07/26/22 09/12/24 History ascorbic acid (vitamin C) 1,000 mg 1 g PO DAILY 09/15/22 09/12/24 History tablet (Vitamin C) calcium 600 mg (as 1 tablet PO DAILY 09/15/22 09/12/24 History carbonate)-vitamin D3 5 mcg (200 unit) tablet magnesium 100 mg tablet 100 mg PO QAM 09/15/22 09/12/24 History naproxen sodium 220 mg tablet 220 mg PO PRN PRN Pain 09/15/22 09/12/24 History (Aleve) oxlvudyc-dsq-nojke acid 200 1 tablet PO DAILY 08/30/24 09/12/24 History mcg-vit K1 60 mcg-lycopene 600 mcg tablet (Men's Multivitamin) Patient hx anesthesia problems: none Family hx anesthesia problems: none Results Review: All pre-operative results and documents have been reviewed as part of the pre- operative evaluation. [facility] Past Medical History Medical History History of stress test Chronic low back pain Hypothyroid Hyperlipemia Surgical History Surgical History History of total hip arthroplasty (~10/11/22) Rt History of laminectomy (~2006) PARTIAL L5-S1 Family History Family History Grandparent Heart attack Social History Social History Smoking status: Never smoker Second hand tobacco smoke exposure: No Additional smoking assessment comments: PT DENIES ALL FORMS OF TOBACCO USE Alcohol intake: current Drinks per week: 5 Substance use: never Substance use type: does not use Do You Feel Safe in your Home?: Yes Lack of Transportation: No Lack of Food: Never True Current Housing: I Have Housing Concerned About Future Housing: No Difficulty Paying Gas/Electric Bills: No Difficulty Paying for Meds: No Currently Unemployed: No Education: Master's Degree or Higher Difficulty w/ Childcare or Family Care: No Living arrangements: with family Spiritual care concerns: No Anes - Eval Final PreProcedure Day of Procedure 09/12/24 07:46 Patient weight: normal Heart: regular rate and rhythm Lungs: clear to auscultation Airway: Mallampati scale class II Neurological: alert and oriented Last oral intake: >/= 8 hours ASA classification: II Emergent: no Anesthetic plan: proceed Anesthesia type and monitoring: general GIVS and standard monitoring Results Review: All pre-operative results and documents have been reviewed as part of the pre-operative evaluation. Informed Consent: The patient's anesthetic plan and its attendant risks and benefits were discussed with the patient/family/POA. Questions were solicited and answers provided to the satisfaction of the patient/family/POA.
[2024-09-12] MEDS: LIDOCAINE 1% LOCAL INJ 20 ML VIAL 10 ML INFILTRATE (08:06)
[2024-09-12] MEDS: ceFAZolin 2 GM/D5W 50 ML 2 GM/50 ML BAG IVPB (09:29)
[2024-09-12 09:57] VITALS: BP 108/53; PULSE 47; RESP 16; O2SAT 98
[2024-09-12 10:27] VITALS: BP 110/58; PULSE 52; RESP 14; O2SAT 100
== END 2024-09-12 10:45 | disposition home or self-care (01) ==
PROVIDERS: PCP Student in an Organized Health Care Education/Training Program; Visit Provider Plastic Surgery
PROC: (CPT 26045; principal; 2024-09-12 08:45)
DX: M72.0 Palmar fascial fibromatosis [Dupuytren] (principal); E78.5 Hyperlipidemia, unspecified; E03.9 Hypothyroidism, unspecified
CPT/HCPCS: 26123; 88304; A9270; J0690; J1100; J2003; J2250; J2405; J2704; J3010

== ENCOUNTER 2024-10-26 11:58 | Emergency (ER) | payer MEDICARE, SELFPAY ==
--- NOTE | 2024-10-26 12:01 | ED.URI ---
HPI - URI/Sore Throat General Chief Complaint: Upper Respiratory Infection Stated Complaint: COUGH/CONGESTION Time Seen by Provider: 10/26/24 12:00 Source: patient Mode of arrival: ambulatory Limitations: no limitations History of Present Illness HPI Narrative: Patient is a 63-year-old male who presents with 3 days cough, fever, body aches, sore throat. Denies congestion, ear pain, nausea vomiting,. Patient has not taken anything for symptoms. Related Data Home Medications ?Medication ?Instructions ?Recorded ?Confirmed ?Last Taken ?Type atorvastatin 10 mg tablet 10 mg PO DAILY 07/26/22 10/26/24 09/11/24 History levothyroxine 88 mcg capsule 88 mcg PO DAILY 07/26/22 10/26/24 09/12/24 History ascorbic acid (vitamin C) 1,000 mg 1 g PO DAILY 09/15/22 10/26/24 09/09/24 History tablet (Vitamin C) calcium 600 mg (as 1 tablet PO DAILY 09/15/22 10/26/24 09/09/24 History carbonate)-vitamin D3 5 mcg (200 unit) tablet magnesium 100 mg tablet 100 mg PO QAM 09/15/22 10/26/24 09/09/24 History obkybeak-upo-glnua acid 200 1 tablet PO DAILY 08/30/24 10/26/24 09/09/24 History mcg-vit K1 60 mcg-lycopene 600 mcg tablet (Men's Multivitamin) Allergies Allergy/AdvReac Type Severity Reaction Status Date / Time No Known Allergies Allergy Verified 10/26/24 12:13 Review of Systems Review of Systems: All systems reviewed & are unremarkable except as noted in HPI and below Constitutional: Constitutional: Reports body ache(s), Denies chills, Denies fatigue, Reports fever(s), Denies headache(s), Denies malaise and Denies weakness Eyes: Eyes: Denies blurry vision, Denies itchy eyes and Denies loss of vision ENT: Denies otalgia, Denies headache(s), Denies nasal congestion, Denies sinus pain and Reports sore throat Cardiovascular: Cardiovascular: Denies chest pain, Denies irregular heart rhythm and Denies dyspnea Respiratory: Respiratory: Reports cough and Denies dyspnea Gastrointestinal: Gastrointestinal: Denies abdominal pain, Denies diarrhea, Denies nausea and Denies vomiting Musculoskeletal: Musculoskeletal: Denies back pain, Denies myalgias and Denies arthralgias Integumentary/Breasts: Skin/Breast: Denies pruritus and Denies rash Neurologic: Denies headache(s), Denies loss of vision and Denies weakness Psychiatric: Psychiatric: Reports no additional psychiatric complaints Endocrine: Endocrine: Denies fatigue Allergic/Immunologic: Allergic/Immunologic: Denies itchy eyes PMFSH Past Medical History Medical History History of stress test Chronic low back pain Hypothyroid Hyperlipemia Surgical History Surgical History History of total hip arthroplasty (~10/11/22) Rt History of laminectomy (~2006) PARTIAL L5-S1 Family History Family History Grandparent Heart attack Social History Social History Smoking status: Never smoker Second hand tobacco smoke exposure: No Additional smoking assessment comments: PT DENIES ALL FORMS OF TOBACCO USE Alcohol intake: current Drinks per week: 5 Substance use: never Substance use type: does not use Do You Feel Safe in your Home?: Yes Lack of Transportation: No Lack of Food: Never True Current Housing: I Have Housing Concerned About Future Housing: No Difficulty Paying Gas/Electric Bills: No Difficulty Paying for Meds: No Currently Unemployed: No Education: Master's Degree or Higher Difficulty w/ Childcare or Family Care: No Living arrangements: with family Spiritual care concerns: No Comments At time of signature, agree with nursing past medical, surgical, social and family history. There is no relevant family history pertinent to the presenting complaint. Exam Const: General: cooperative, healthy appearing, comfortable, no acute distress and well nourished Nutritional Appearance: well nourished Orientation/consciousness: patient oriented x3 Limitations: no limitations HENMT: Head: normal to inspection, normocephalic and atraumatic Ears: hearing grossly normal bilaterally, external ears normal, TM's normal bilaterally, EAC's normal and no periauricular adenopathy Face/Nose/Sinus: Normal external nose present, Abnormal mucous membranes and turbinates present erythematous bilateral and diffuse, normal facial exam, sinuses nontender and face symmetric Face and sinus: normal facial exam, sinuses nontender and face symmetric Mouth: Yes Normal oral and palatal mucosa present, Yes lip normal, Yes tongue normal, Yes Normal salivary glands and ducts present, Yes oropharynx normal and Yes moist mucous membranes Teeth and gingiva: dentition normal Throat: posterior oropharynx normal, tonsils normal and uvula midline Eyes: General: appearance normal, both eyes and all related structures Alignment and Position: alignment normal and position normal Periorbital: periorbital findings normal Eyelids: eyelids normal Pupils: Equal, round and reactive pupils present Neck: Neck: normal visual inspection, full ROM, no lymphadenopathy and supple Chest: Chest palpation & inspection: normal inspection of the chest and normal palpation of entire chest wall Resp: Effort & Inspection: normal respiratory effort and able to speak in complete sentences Auscultation: clear to auscultation bilaterally, no crackles, no rales, no rhonchi and no wheezes Cardio: Rate: regular rate Rhythm: regular rhythm Heart sounds: S1 normal heart sound present and S2 normal heart sound present GI: Inspection: normal to inspection Skin: General skin exam: normal color and no rashes or lesions noted Neuro: General: patient oriented x3 and moves all extremities Cranial nerves: Yes Equal, round and reactive pupils present Speech: normal speech Gait exam (Neuro): Normal gait present Extrem: General: normal to inspection, full ROM and no edema Psych: Appearance: grossly normal and well kempt Mental Status: mental status grossly normal Speech and movement: Normal speech and movement present Affect: normal affect Attitude: cooperative Thought process: Normal thought process present Course Course Emergency Course: Discharge instructions reviewed with patient, as well as provided in writing per nursing staff. The instructions also include specific and strict return/GO TO THE ER as well as f/u information. All questions have been answered, and the patient deny any further questions with discharge and discharge plan. Portions of this record may have been created with voice recognition software Level of Care: Express Care Visit Vital Signs Vital signs: Vital Signs Temperature 37.2 C 10/26/24 12:12 Pulse Rate 82 10/26/24 12:12 Respiratory Rate 16 10/26/24 12:12 Blood Pressure 128/74 10/26/24 12:12 Pulse Oximetry 98 10/26/24 12:12 Temperature 37.2 C 10/26/24 12:12 Pulse Rate 82 10/26/24 12:12 Respiratory Rate 16 10/26/24 12:12 Blood Pressure 128/74 10/26/24 12:12 Pulse Oximetry 98 10/26/24 12:12 Reviewed MDM - URI/Sore Throat MDM Narrative Medical decision making narrative: Pt well hydrated appearing, in no respiratory distress, hemodynamically stable. Recommend supportive care. The patient is stable at time of discharge the clinical impression was discussed and the patient was given the opportunity to ask questions, which were addressed as completely as possible given the information available at present. Anticipatory guidance and return to care precautions were discussed and the importance of primary care follow-up was stressed and encouraged. The patient voiced understanding of the plan, indications to return, and the need for follow-up. Differential diagnosis considered: Quintana virus, strep pharyngitis, allergic rhinitis, upper respiratory tract infection, sinusitis, rhinosinusitis, nasopharyngitis. viral pharyngitis, otitis media, otitis externa, otitis effusion, foreign body, cerumen impaction, viral syndrome, and influenza.? Exam findings show no acute concerns or changes; patient is non-toxic appearing and is in no distress.? Patient is appropriate for outpatient treatment and follow-up.? Medical Records Attestation: I reviewed the patient's medical records. Lab Data Attestation: I reviewed the patient's lab results. Labs: Lab Results 10/26/24 10/26/24 Range/Units 12:22 12:27 POC Influenza A Ag Positive (Negative) POC Influenza B Ag Negative (Negative) POC SARS CoV-2 Ag Negative (Negative) Discharge Plan Discharge Clinical Impression: Influenza Patient Disposition: Home, Self-Care Condition: Stable Instructions: Influenza (ED) Additional Instructions: Were positive for influenza A. Your Covid is negative Your symptoms are due to a viral illness, which is not treated with antibiotics. Viral symptoms can be present for up to a few weeks. -For fever/pain, you may take: Tylenol 650-1000mg by mouth every 4-6 hours. Do not exceed 4000mg in 24 hours. Advil (Ibuprofen) 600 mg by mouth every 6 hours. Do not exceed 2400mg in 24 hours. 8 AM: Tylenol 11 AM: Ibuprofen 2 PM: Tylenol 5 PM: Ibuprofen 8 PM: Tylenol 11 PM: Ibuprofen 2 AM: Tylenol 5 AM: Ibuprofen -Antihistamine medication such as Benadryl/Zyrtec at night and Claritin/Chandrika during the day can help improve symptoms. -Use Flonase twice a day for 5 days then daily to help reduce the inflammation and dry up your sinuses. -You can also use Sudafed behind the pharmacy counter(12 or 24 hour). Be sure to drink plenty of water with these medications at least 8 ounces with every dose and it is important to drink 8 to 10 glasses of water per day. Water is a natural decongestant -Eat and drink things that are easy to swallow, like tea or soup, or popsicles. -Oral rinses such as: Salt water gargles and/or may use topical anesthetic (eg. Chloraseptic spray) or lozenges to relieve dryness or throat pain). -Frequent hand washing or hand wetlands conservation laborer is one of the best ways to prevent spread of infection. -Using a vaporizer or humidifier at night will also help thin secretions and help with coughing up phlegm. -Follow up with primary care provider in 3-5 days if condition is not improving - For new or worsening symptoms go directly to the nearest ER Patient Language: Armenian Prescriptions: New benzonatate 100 mg capsule 100 mg PO BID PRN (Reason: cough) Qty: 14 0RF No Action atorvastatin 10 mg tablet 10 mg PO DAILY Patient Comments: QAM levothyroxine 88 mcg capsule 88 mcg PO DAILY Patient Comments: QAM Men's Multivitamin 200-60-600 mcg Tablet 1 tablet PO DAILY ascorbic acid (vitamin C) [Vitamin C] 1,000 mg Tablet 1 g PO DAILY calcium carbonate-vitamin D3 600 mg-5 mcg (200 unit) Tablet 1 tablet PO DAILY magnesium 100 mg Tablet 100 mg PO QAM Follow-up/Referrals: Lulu,DO Bret [Primary Care Provider] - 3 Days Time of Disposition: 12:44
[2024-10-26 12:12] VITALS: BP 128/74; PULSE 82; RESP 16; TEMP 37.2; O2SAT 98
[2024-10-26 12:25] LABS: EDINFLUASCREEN Positive (Negative); EDINFLUBSCREEN Negative (Negative)
[2024-10-26 12:29] LABS: EDCOVIDSCREEN Negative (Negative)
== END 2024-10-26 12:49 | disposition home or self-care (01) ==
PROVIDERS: Emergency Provider Nurse Practitioner Family; PCP Student in an Organized Health Care Education/Training Program
DX: J10.1 Influenza due to other identified influenza virus with other respiratory manifestations (principal); Z20.822 Contact with and (suspected) exposure to COVID-19; E03.9 Hypothyroidism, unspecified; E78.5 Hyperlipidemia, unspecified; Z96.641 Presence of right artificial hip joint
CPT/HCPCS: 87426; 87804; 99213; G0463

== ENCOUNTER 2024-12-27 08:02 | Outpatient (CLI) | payer MEDICARE, SELFPAY ==
--- NOTE | ~2024-12-27 | MR_ITS ---
MRI of the right shoulder Technique: Axial proton-density fat-sat images, coronal proton density fat-sat and T2 fat-sat images, and sagittal T1-weighted and T2 fat-sat images were acquired. Clinical History: Pain Findings: There is mild AC joint degenerative change. Coracoclavicular, coracoacromial, and coracohum eral ligaments are intact. Supraspinatus and infraspinatus tendons are intact, without partial or full-thickness tear. Subscapul carol tendon intact. Tendon of long head of the biceps is intact. Probable small tear of the superior labrum. There is thickening and increased signal of the inferior glenohumeral ligament. There is minimal liborio ohumeral joint effusion. There is small amount of fluid in the subacromial/subdeltoid bursa. No muscl e atrophy or edema. Impression: Findings compatible with adhesive capsulitis. Probable small tear of the superior labrum. Mild AC joint degenerative change. Reviewed, dictated and finalized at [facility]. Impression: Findings compatible with adhesive capsulitis. Probable small tear of the superior labrum. Mild AC joint degenerative change.
== END 2024-12-27 08:03 | disposition home or self-care (01) ==
LOC: GOSHIMG 08:02
PROVIDERS: PCP Physician Assistant Surgical; Visit Provider Physician Assistant Surgical
DX: M25.811 Other specified joint disorders, right shoulder (principal); M19.011 Primary osteoarthritis, right shoulder
CPT/HCPCS: 73221